=== PATIENT | male | born 1940 | race Caucasian/White ===

== ENCOUNTER 2016-12-10 07:38 | Day surgery (SDC) | payer MEDICARE ==
[~2016-12-10] VITALS: Ht 175.3 cm; Wt 82.5 kg
[~2016-12-10 07:38] MED LIST: 0.9% Sodium Chloride 1,000 ML IV SCH; ASPI-973 PO; ATOR20TA65 PO; CHOL100045 PO; HYDR25TA4 PO; LISI40TA PO; METO25TA6 PO; Sodium Chloride LOK Flush 10 mL Syringe IV PRN; TADA20TA PO; TEST200V20 IM; fentaNYL-PF 50 mCg/mL 2 mL Inj IVPUSH PRN
[2016-12-10 08:01] VITALS: BP 134/67; PULSE 62; RESP 12; O2SAT 97
[2016-12-10] MEDS ORDERED: TAMS0.4C98 PO (08:05)
[2016-12-10 09:41] VITALS: BP 144/77; PULSE 56; RESP 16; O2SAT 97
[2016-12-10 09:51] VITALS: BP 136/65; PULSE 50; RESP 16; O2SAT 96
[2016-12-10 09:58] VITALS: BP 137/69; PULSE 51; RESP 16; O2SAT 96
--- NOTE | 2016-12-10 10:04 | ENDO ---
[address] [address] ENDOSCOPY PROCEDURE PATIENT: JUDY ZAMORANO : 1940 MR#: [id number] ADMIT: 12/10/2016 JOB ID: [id number] DATE: 12/10/2016 PRIMARY PROVIDER: Carson Grimes M.D. PROCEDURE: Colonoscopy with hot snare polypectomy, cold forceps polypectomy and Kailee ink tattoo placement plus APC ablation. INDICATIONS: A 76-year-old male with a history of multiple challenging colon polyps and colon cancer status post extended right hemicolectomy returning for surveillance. EQUIPMENT: PCF H 180 AL. SEDATION: 1. 5 mg Versed. 2. 125 mcg fentanyl. COMPLICATIONS: None identified. BOWEL PREPARATION: Very adequate. PROCEDURAL INFORMATION: After the risks and benefits were explained, written and verbal informed consent was obtained. The patient was brought into the endoscopy suite and placed into the left lateral decubitus position. Sedation was achieved as above. Digital rectal examination accomplished. Mild internal hemorrhoids noted. The scope was introduced into the rectum and advanced under direct visualization to the level of the right hemicolectomy anastomosis. The scope was then slowly withdrawn to carefully examine the mucosa for any defects or lesions. Multiple direct views were made through the dentate line for exclusion of pathology. The colon was decompressed. The scope removed from the patient who tolerated the procedure well. Please note this was an extremely lengthy procedure, much more involved than would be average or typical. A 22 modifier was, therefore, requested. FINDINGS: The anastomosis appeared normal and patent. There was one small inflammatory looking polyp that was probably related to a foreign body reaction from suture, but we elected to biopsy this area just to exclude any element of adenoma. Throughout the colon, there were five other polyps seen and removed by way of hot snare and cold forceps. There was a larger polyp in the distal transverse right near the splenic flexure on the backside of a fold. This measured out to perhaps be somewhere in the neighborhood of about 13 mm or so. It was a very challenging spot to obtain position on. Using a combination of piecemeal polypectomy with a standard Jumbo snare and hexagonal snare, we attempted to resect this polyp. Not all of it was amenable to excision with the snares. We thereafter ablated what we could see remaining with APC using a circumferential probe and right colon settings. We then tattooed approximately 2 cc of Kailee ink just distal to this location and photographed it extensively. There was moderate diverticulosis throughout the sigmoid colon. ENDOSCOPIC DIAGNOSES: 1. Right hemicolectomy anastomosis with a small inflammatory polyp. 2. Numerous small colon polyps. 3. A 13 mm sessile polyp on the backside of a fold status post piecemeal excision and APC. RECOMMENDATIONS: 1. Await histopathology. 2. Repeat colonoscopy in six months' time to ensure complete removal of this difficult polyp.
--- NOTE | 2016-12-11 15:54 | PATH ---
SURGICAL PATHOLOGY Attending Physician:Mitali Valdes CASE STATUS: Signed Out PATIENT NAME: JUDY ZAMORANO PID: [id number] : 1940 DATE COLLECTED:12/10/2016 16:14 SPECIMEN: 1: Colon, Polyp 2: Colon, Biopsy 3: Colon, Polyp CLINICAL HISTORY: COLON POLYPS 1). COLON POLYPS X5 2). ANASTOMOSIS BIOPSY 3). TRANSVERSE COLON POLYP X1 FINAL DIAGNOSIS: 1.COLON POLYPS, BIOPSIES: TUBULAR ADENOMA X4. INFLAMMATORY POLYP X1. 2.ANASTOMOSIS, BIOPSY: COLONIC MUCOSA WITH ARCHITECTURAL DISTORTION CONSISTENT WITH ANASTOMOTIC SITE WITH EROSION AND GRANULATION TISSUE. Negative for dysplasia or malignancy. 3.TRANSVERSE COLON POLYP, BIOPSY: TUBULOVILLOUS ADENOMA. ICD10 D12.6 GROSS DESCRIPTION: The specimen is received in three formalin filled containers labeled with the patient's name. 1). The specimen is labeled "colon polyps" and consists of 4 portions of tissue which aggregate to 0.3 x 0.3 x 0.2 CM. The specimen is entirely submitted in cassette 1A. 2). The specimen is labeled "anastam" and consists of 2 tiny portions of tissue which aggregate to 0.1 x 0.1 x 0.1 CM. The specimen is entirely submitted in cassette 2A. 3). The specimen is labeled "transverse colon polyp" and consists of multiple portions of tissue which aggregate to 0.4 x 0.4 x 0.3 CM. The specimen is entirely submitted in cassette 3A. 12/10/2016DC MICRO DESCRIPTION: See diagnosis. ICD-9 CODES: CPT CODES: 1: 99669 2: 76870 3: 73653 Electronically Signed Out Donavan Hawkins MD, Ph.D. [facility] [address], [place] [address] Technical component performed at [facility], [facility] [address], [place], [address]
== END 2016-12-10 23:59 | disposition home or self-care (01) ==
LOC: END 07:38
PROVIDERS: ATTEND Internal Medicine Gastroenterology
DX: D12.3 Benign neoplasm of transverse colon (principal); K51.40 Inflammatory polyps of colon without complications; I10 Essential (primary) hypertension; E78.5 Hyperlipidemia, unspecified; Z90.49 Acquired absence of other specified parts of digestive tract; Z86.010 Personal history of colon polyps
CPT/HCPCS: 45380; 45381; 45385; 45388; 88305; 99153; G0500; J2250; J3010; J7030